=== PATIENT | female | born 1985 | race Caucasian/White ===

== ENCOUNTER 2017-01-29 12:10 | Emergency (ER) | payer SELFPAY ==
[~2017-01-29] VITALS: Ht 170.2 cm; Wt 122.5 kg
[~2017-01-29 12:10] MED LIST: BUTA1CAP45 PO; CEPH-507 PO; ONDA4TAB8 PO; ORPH100T PO; OXYC-197 PO; PRD10T PO; PROM50SU10 RC; SULF1TAB35 PO; VERA120C2 PO
--- OUTSIDE RECORDS SUMMARY | 2017-01-29 12:17 | XMS REPORT ---
Author Author HUMZA APPIAH eClinicalWorks Address Unknown Phone Unavailable Care Team Providers Care Swedish Masseuse Name Role Phone HUMZA APPIAH CP Unavailable Allergies, Adverse Reactions, Alerts Substance Reaction Event Type N.K.D.A. Info Not Available Non Drug Allergy Problems Problem Type Condition Code Onset Dates Condition Status Problem Essential hypertension I10 Active Assessment Essential hypertension I10 Active Problem Non morbid obesity due to excess calories E66.09 Active Assessment Non morbid obesity due to excess calories E66.09 Active Medications Medication Code System Code Instructions Start Date End Date Status Dosage Verapamil HCl CR [facility] [place] 2] [address]-32 120 MG Orally Once a day May 18, 2015 1 tablet Flonase [facility] [place]NOTE 2] [address]-48 50 MCG/ACT Nasally Once a day May 04, 2015 1 spray in each nostril Procedures Procedure Coding System Code Date Office Visit, Est Pt., Level 3 CPT-4 60763 May 18, 2015 Vital Signs Date/Time: May 18, 2015 Temperature 97.8 F Weight 238.6 lbs Height 67 in BMI 37.37 Index Blood Pressure Diastolic 100; repeated 146 mmHg Blood Pressure Systolic 146 mmHg Cardiac Monitoring Heart Rate 72 bpm Results No Known Results Summary Purpose eClinicalWorks Submission
--- OUTSIDE RECORDS SUMMARY | 2017-01-29 12:17 | XMS REPORT ---
Author Author AYLEEN TINOCO Organization eClinicalWorks Address Unknown Phone Unavailable Care Team Providers Care Compatibility Test Engineer Name Role Phone AYLEEN TINOCO Unavailable Allergies No Known Allergies Problems Problem Type Condition Code Onset Dates Condition Status Problem Weight loss counseling, encounter for Z71.3 Active Problem Non morbid obesity due to excess calories E66.09 Active Problem Migraines G43.909 Active Problem Essential hypertension I10 Active Medications No Known Medications Results No Known Results Summary Purpose eClinicalWorks Submission
--- OUTSIDE RECORDS SUMMARY | 2017-01-29 12:17 | XMS REPORT ---
Author Author HUMZA APPIAH eClinicalWorks Address Unknown Phone Unavailable Care Team Providers Care Palm And Back Forger Name Role Phone HUMZA APPIAH CP Unavailable Allergies, Adverse Reactions, Alerts Substance Reaction Event Type N.K.D.A. Info Not Available Non Drug Allergy Problems Problem Type Condition Code Onset Dates Condition Status Problem Non morbid obesity due to excess calories E66.09 Active Problem Essential hypertension I10 Active Problem Weight loss counseling, encounter for Z71.3 Active Assessment Weight loss counseling, encounter for Z71.3 Active Assessment Essential hypertension I10 Active Assessment Non morbid obesity due to excess calories E66.09 Active Medications Medication Code System Code Instructions Start Date End Date Status Dosage Metformin HCl [facility] [address]-72 500 MG Orally Twice a day May 30, 2015 1 tablet with meals Flonase [facility] [address]-36 50 MCG/ACT Nasally Once a day May 04, 2015 1 spray in each nostril Topamax [facility] [address]-27 50 MG Orally Twice a day May 30, 2015 1 tablet Verapamil HCl CR [facility] [address]-21 120 MG Orally Once a day May 18, 2015 1 tablet Procedures Procedure Coding System Code Date COMPREHEN METABOLIC PANEL CPT-4 28297 May 30, 2015 LIPID PANEL CPT-4 78354 May 30, 2015 COMPLETE CBC W/AUTO DIFF WBC CPT-4 80094 May 30, 2015 ASSAY OF INSULIN CPT-4 55492 May 30, 2015 ASSAY THYROID STIM HORMONE CPT-4 26879 May 30, 2015 VENIPUNCT, ROUTINE* CPT-4 26082 May 30, 2015 Office Visit, Est Pt., Level 3 CPT-4 32152 May 30, 2015 Vital Signs Date/Time: May 30, 2015 Temperature 98.7 F Weight 240.8 lbs Height 67 in BMI 37.71 Index Blood Pressure Diastolic 90 mmHg Blood Pressure Systolic 138 mmHg Cardiac Monitoring Heart Rate 92 bpm Results Name Result Date Reference Range Unit Abnormality Flag INSULIN LEVEL ----Insulin 18.8 [id number] 2.6-24.9 uIU/mL CBC ----Basos 1 83518833 % ----MCV 82 63551513 79-97 fL ----Hematocrit 41.8 61958543 34.0-46.6 % ----Eos 2 39950077 % ----MCHC 32.5 59723730 31.5-35.7 g/dL ----Monocytes 9 94474714 % ----MCH 26.6 67219405 26.6-33.0 pg ----Lymphs 36 11097386 % ----Eos (Absolute) 0.2 74751556 0.0-0.4 x10E3/uL ----WBC 8.1 17935556 3.4-10.8 x10E3/uL ----Monocytes(Absolute) 0.7 85079679 0.1-0.9 x10E3/uL ----Lymphs (Absolute) 2.9 19533869 0.7-3.1 x10E3/uL ----Hemoglobin 13.6 82987854 11.1-15.9 g/dL ----Neutrophils (Absolute) 4.3 94056458 1.4-7.0 x10E3/uL ----RBC 5.11 60506625 3.77-5.28 x10E6/uL ----Immature Grans (Abs) 0.0 63318887 0.0-0.1 x10E3/uL ----Immature Granulocytes 0 78612497 % ----Neutrophils 52 25353796 % ----Baso (Absolute) 0.0 25586393 0.0-0.2 x10E3/uL ----RDW 14.9 58063902 12.3-15.4 % ----Platelets 350 85866397 150-379 x10E3/uL ROUTINE VENIPUNCTURE TSH ----TSH 2.380 [id number] 0.450-4.500 uIU/mL LIPID PANEL ----LDL Cholesterol Calc 142 62199073 0-99 mg/dL H ----VLDL Cholesterol Pool 24 34843758 5-40 mg/dL ----HDL Cholesterol 62 22511878 >39 mg/dL ----Triglycerides 119 66383085 0-149 mg/dL ----Cholesterol, Total 228 90652184 100-199 mg/dL H CMP ----Creatinine, Serum 0.74 20150530 0.57-1.00 mg/dL ----BUN 13 20150530 6-20 mg/dL ----eGFR If Africn Am 125 59038604 >59 mL/min/1.73 ----eGFR If NonAfricn Am 108 92745178 >59 mL/min/1.73 ----Sodium, Serum 137 90675292 134-144 mmol/L ----BUN/Creatinine Ratio 18 20150530 8-20 ----Chloride, Serum 100 07534765 97-108 mmol/L ----Potassium, Serum 4.4 20150530 3.5-5.2 mmol/L ----Carbon Dioxide, Total 26 20150530 18-29 mmol/L ----Protein, Total, Serum 7.4 12473985 6.0-8.5 g/dL ----Calcium, Serum 9.5 02876713 8.7-10.2 mg/dL ----Globulin, Total 3.1 45907685 1.5-4.5 g/dL ----Albumin, Serum 4.3 66581224 3.5-5.5 g/dL ----Bilirubin, Total <0.2 20150530 0.0-1.2 mg/dL ----Glucose, Serum 90 51859652 65-99 mg/dL ----A/G Ratio 1.4 20150530 1.1-2.5 ----ALT (SGPT) 20 20150530 0-32 IU/L ----Alkaline Phosphatase, S 80 34886546 39-117 IU/L ----AST (SGOT) 16 [id number] 0-40 IU/L Summary Purpose eClinicalWorks Submission
--- OUTSIDE RECORDS SUMMARY | 2017-01-29 12:17 | XMS REPORT ---
Author Author KORI KHOURY Organization eClinicalWorks Address Unknown Phone Unavailable Care Team Providers Care Head Librarian Name Role Phone KORI KHOURY CP Unavailable Allergies, Adverse Reactions, Alerts Substance Reaction Event Type N.K.D.A. Info Not Available Non Drug Allergy Problems Problem Type Condition Code Onset Dates Condition Status Problem Non morbid obesity due to excess calories E66.09 Active Problem Essential hypertension I10 Active Problem Weight loss counseling, encounter for Z71.3 Active Assessment Sore throat J02.9 Active Medications Medication Code System Code Instructions Start Date End Date Status Dosage Topamax [facility] [address]-93 50 MG Orally Twice a day May 30, 2015 1 tablet Metformin HCl [facility] [address]-28 500 MG Orally Twice a day May 30, 2015 1 tablet with meals Flonase [facility] [address]-22 50 MCG/ACT Nasally Once a day May 04, 2015 1 spray in each nostril Verapamil HCl CR [facility] [address]-36 120 MG Orally Once a day May 18, 2015 1 tablet Procedures Procedure Coding System Code Date Office Visit, Est Pt., Level 3 CPT-4 71874 Jul 06, 2015 CULTURE, BACTERIA, OTHER CPT-4 67937 Jul 06, 2015 STREP A ASSAY W/OPTIC CPT-4 96322 Jul 06, 2015 Vital Signs Date/Time: Jul 06, 2015 Temperature 98.9 F Weight 236.9 lbs Height 67 in BMI 37.10 Index Blood Pressure Diastolic 98 mmHg Blood Pressure Systolic 138 mmHg Cardiac Monitoring Heart Rate 88 bpm Results Name Result Date Reference Range Unit Abnormality Flag STREP A (IN HOUSE) ----STREP A negative [id number] ----Control + [id number] ----Lot # [id number] ----Exp date 04/21/[id number] Summary Purpose eClinicalWorks Submission
--- OUTSIDE RECORDS SUMMARY | 2017-01-29 12:17 | XMS REPORT ---
Author Author MARY LEDEZMA [facility] eClinicalWorks Address Unknown Phone Unavailable Care Team Providers Care Filter Tip Catcher Name Role Phone MARY ELDEZMA CP Unavailable Allergies, Adverse Reactions, Alerts Substance Reaction Event Type N.K.D.A. Info Not Available Non Drug Allergy Problems Problem Type Condition Code Onset Dates Condition Status Problem Weight loss counseling, encounter for Z71.3 Active Problem Non morbid obesity due to excess calories E66.09 Active Problem Migraines G43.909 Active Problem Essential hypertension I10 Active Assessment Bronchitis J40 Active Medications Medication Code System Code Instructions Start Date End Date Status Dosage Imitrex [facility] [address]-54 100 MG Orally Once a day August 22, 2015 1 tablet as needed Flonase [facility] [address]-91 50 MCG/ACT Nasally Once a day May 04, 2015 1 spray in each nostril Doxycycline Hyclate [facility] [address]-11 100 MG Orally every 12 hrs Mar 14, 2016 Mar 19, 2016 1 capsule Verapamil HCl CR [facility] [address]-77 240 MG Orally Once a day August 30, 2015 1 capsule Promethazine-Codeine [facility] [address]-54 6.25-10 MG/5ML Orally every 6 hrs Mar 14, 2016 5 ml as needed Procedures Procedure Coding System Code Date Office Visit, Est Pt., Level 3 CPT-4 13433 Mar 14, 2016 Vital Signs Date/Time: Mar 14, 2016 Cardiac Monitoring Heart Rate 100 bpm Weight 247.5 lbs Height 67 in BMI 38.76 Index Blood Pressure Diastolic 122 mmHg Blood Pressure Systolic 159 mmHg Results No Known Results Summary Purpose eClinicalWorks Submission
--- OUTSIDE RECORDS SUMMARY | 2017-01-29 12:17 | XMS REPORT ---
Author Author HUMZA APPIAH Organization eClinicalWorks Address Unknown Phone Unavailable Care Team Providers Care Epitaxial Reactor Operator Name Role Phone HUMZA APPIAH CP Unavailable Allergies No Known Allergies Problems Problem Type Condition Code Onset Dates Condition Status Problem Essential hypertension I10 Active Problem Non morbid obesity due to excess calories E66.09 Active Medications No Known Medications Results No Known Results Summary Purpose eClinicalWorks Submission
--- OUTSIDE RECORDS SUMMARY | 2017-01-29 12:17 | XMS REPORT ---
Author Author HUMZA APPIAH Organization eClinicalWorks Address Unknown Phone Unavailable Care Team Providers Care Hand Rug Cleaner Name Role Phone HUMZA APPIAH CP Unavailable Allergies, Adverse Reactions, Alerts Substance Reaction Event Type N.K.D.A. Info Not Available Non Drug Allergy Problems Problem Type Condition Code Onset Dates Condition Status Problem Essential hypertension I10 Active Assessment Bronchitis J40 Active Problem Non morbid obesity due to excess calories E66.09 Active Assessment Cough R05 Active Medications Medication Code System Code Instructions Start Date End Date Status Dosage Flonase [facility] [address]-04 50 MCG/ACT Nasally Once a day May 04, 2015 1 spray in each nostril Verapamil HCl CR [facility] [address]-29 120 MG Orally Once a day May 18, 2015 1 tablet Tessalon Perles [facility] [address]-90 100 MG Orally Three times a day May 25, 2015 Jun 04, 2015 1 capsule as needed Azithromycin [facility] [address]-36 250 MG Orally Once a day May 25, 2015 May 30, 2015 2 tablets on the first day, then 1 tablet daily for 4 days Procedures Procedure Coding System Code Date Office Visit, Est Pt., Level 3 CPT-4 26377 May 25, 2015 Vital Signs Date/Time: May 25, 2015 Temperature 96.6 F Weight 238.4 lbs Height 67 in BMI 37.33 Index Blood Pressure Diastolic 82 mmHg Blood Pressure Systolic 120 mmHg Cardiac Monitoring Heart Rate 78 bpm Results No Known Results Summary Purpose eClinicalWorks Submission
--- OUTSIDE RECORDS SUMMARY | 2017-01-29 12:17 | XMS REPORT ---
Author Author REILLY CHRISTINE [facility] eClinicalWorks Address Unknown Phone Unavailable Care Team Providers Care Puppy Walker Name Role Phone REILLY CHRISTINE CP Unavailable Allergies No Known Allergies Problems Problem Type Condition Code Onset Dates Condition Status Problem Headache 784.0 Active Problem Rash and other nonspecific skin eruption 782.1 Active Problem Unspecified hypothyroidism 244.9 Active Problem Routine general medical examination at health care facility V70.0 Active Problem Cough 786.2 Active Problem Essential hypertension, benign 401.1 Active Problem Urinary tract infection, site not specified 599.0 Active Problem Contact or exposure to other communicable diseases V01.89 Active Problem Acute pharyngitis 462 Active Problem Acute upper respiratory infections of unspecified site 465.9 Active Problem 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
--- OUTSIDE RECORDS SUMMARY | 2017-01-29 12:18 | XMS REPORT ---
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 Active Problem Endometriosis, site unspecified 617.9 Active Problem Unspecified symptom associated with female genital organs 625.9 Active Problem Unspecified otitis media 382.9 Active Problem Dyspareunia 625.0 Active Problem General counseling for prescription of oral contraceptives V25.01 Active Problem Screening examination for venereal disease V74.5 Active Medications Medication Code System Code Instructions Start Date End Date Status Dosage Promethazine-Codeine [facility] [place] [address]-53 6.25-10 MG/5ML Orally every 6 hrs Apr 24, 2015 Apr 29, 2015 5 ml as needed verapamil NDC 0 120 mg Apr 06, 2014 1 capsule by Oral route 1 time per day PredniSONE [facility] [place] [address]-67 20 MG Orally Once a day Apr 24, 2015 Apr 29, 2015 1 tablet with food or milk Procedures Procedure Coding System Code Date Office Visit, Est Pt., Level 3 CPT-4 06158 Apr 24, 2015 Vital Signs Date/Time: Apr 24, 2015 Temperature 98.7 F Weight 237.0 lbs Height 67 in BMI 37.12 Index Blood Pressure Diastolic 88 mmHg Blood Pressure Systolic 136 mmHg Cardiac Monitoring Heart Rate 78 bpm Results No Known Results Summary Purpose eClinicalWorks Submission
--- OUTSIDE RECORDS SUMMARY | 2017-01-29 12:18 | XMS REPORT ---
Author Author HUMZA APPIAH Organization eClinicalWorks Address Unknown Phone Unavailable Care Team Providers Care Flying Squad Salesperson Name Role Phone HUMZA APPIAH CP Unavailable Allergies No Known Allergies Problems Problem Type Condition Code Onset Dates Condition Status Problem Non morbid obesity due to excess calories E66.09 Active Problem Essential hypertension I10 Active Problem Weight loss counseling, encounter for Z71.3 Active Medications No Known Medications Results No Known Results Summary Purpose eClinicalWorks Submission
--- OUTSIDE RECORDS SUMMARY | 2017-01-29 12:18 | XMS REPORT ---
Author Author SUHAIL DANIELS [facility] eClinicalWorks Address Unknown Phone Unavailable Care Team Providers Care Insurance Compliance Analyst Name Role Phone SUHAIL DANIELS CP Unavailable Allergies No Known Allergies Problems [...]
--- OUTSIDE RECORDS SUMMARY | 2017-01-29 12:18 | XMS REPORT ---
Author Author REILLY CHRISTINE [facility] eClinicalWorks Address Unknown Phone Unavailable Care Team Providers Care Property Field Adjuster Name Role Phone REILLY CHRISTINE CP Unavailable [...] Instructions Start Date End Date Status Dosage verapamil NDC 0 120 mg Apr 06, 2014 1 capsule by Oral route 1 time per day Flonase [facility] [place] [address]-22 50 MCG/ACT Nasally Once a day May 04, 2015 1 spray in each nostril Augmentin [facility] [place] [address]-24 875-125 MG Orally every 12 hrs May 04, 2015 May 14, 2015 1 tablet Promethazine-Codeine [facility] [place] [address]-00 6.25-10 MG/5ML Orally every 6 hrs Apr 24, 2015 Apr 29, 2015 5 ml as needed Procedures Procedure Coding System Code Date Office Visit, Est Pt., Level 3 CPT-4 31100 May 04, 2015 MEASURE BLOOD OXYGEN LEVEL CPT-4 53057 May 04, 2015 Vital Signs Date/Time: May 04, 2015 Temperature 97.2 F Weight 240.2 lbs Height 67 in Oximetry 99 % Blood Pressure Diastolic 114 mmHg Blood Pressure Systolic 182 mmHg Cardiac Monitoring Heart Rate 78 bpm BMI 37.62 Index Results No Known Results Summary Purpose eClinicalWorks Submission
--- OUTSIDE RECORDS SUMMARY | 2017-01-29 12:18 | XMS REPORT ---
Author Author DAWN ROTHMAN eClinicalWorks Address Unknown Phone Unavailable Care Team Providers Care Wedding Cake Designer Name Role Phone DAWN ROTHMAN CP Unavailable Allergies No Known Allergies Problems Problem Type Condition Code Onset Dates Condition Status Problem Weight loss counseling, encounter for Z71.3 Active Problem Non morbid obesity due to excess calories E66.09 Active Problem Migraines G43.909 Active Assessment Atyp squam cell of undet signfc cyto smr crvx (ASC-US) R87.610 Active Problem Essential hypertension I10 Active Assessment Cervical high risk human papillomavirus (HPV) DNA test positive R87.810 Active Medications No Known Medications Procedures Procedure Coding System Code Date ENDOCERV CURETTAGE W/SCOPE CPT-4 59547 December 14, 2015 URINE TEST CPT-4 39090 December 14, 2015 Vital Signs Date/Time: December 14, 2015 Cardiac Monitoring Heart Rate 86 bpm Weight 246.0 lbs Height 67 in Blood Pressure Diastolic 88 mmHg Blood Pressure Systolic 146 mmHg Results No Known Results Summary Purpose eClinicalWorks Submission
--- OUTSIDE RECORDS SUMMARY | 2017-01-29 12:18 | XMS REPORT ---
Author Author AYLEEN TINOCO [facility] eClinicalWorks Address Unknown Phone Unavailable Care Team Providers Care Mining Speculator Name Role Phone AYLEEN TINOCO Unavailable Allergies No Known Allergies Problems Problem Type Condition Code Onset Dates Condition Status Problem Weight loss counseling, encounter for Z71.3 Active Problem Non morbid obesity due to excess calories E66.09 Active Problem Migraines G43.909 Active Problem Essential hypertension I10 Active Medications Medication Code System Code Instructions Start Date End Date Status Dosage Imitrex [facility] [address]-09 100 MG Orally Once a day August 22, 2015 1 tablet as needed Results No Known Results Summary Purpose eClinicalWorks Submission
[2017-01-29] MEDS ORDERED: meTOprolol TARTRATE 25 MG (LOPRESSOR) TABLET PO ONE (12:30)
[2017-01-29] MEDS ORDERED: ALPRAZolam 0.5 MG (XANAX) TAB PO SCH (12:30)
--- NOTE | 2017-01-29 12:37 | ED Chest Pain ---
General Chief Complaint: Chest Pain Stated Complaint: CHEST PAINS Nursing Triage Note: c/o chest pain. Onset yesterday. Pt has been out of her BP meds the last 4-5 days. Nursing Sepsis Screen: No Definite Risk Source: patient Exam Limitations: no limitations History of Present Illness Time seen by provider: 12:37 Initial Comments Chest pain since yesterday described as tightness. Also has dyspnea and anxiety. Ran out of benazepril 4-5 days ago. Timing/Duration: 24 hours Severity/Quality: moderate Location: central Radiation: no radiation Activities at Onset: none Prior CP/Workup: no prior chest pain, angina Allergies and Home Medications Allergies Coded Allergies: hydrocodone (Unverified Allergy, Mild, PT STATES MAKES HER ITCHY, 12/16/06) metoclopramide (Unverified Adverse Reaction, Mild, PT STATES MAKES HER DIZZY AND LIGHTHEADED, 12/16/06) Home Medications Benazepril HCl 10 Mg Tablet, 10 MG PO DAILY, #10 Prescribed by: GERMAIN GARCIA on 01/29/17 1330 Butalb/Acetaminophen/Caffeine 1 Each Capsule, 1-2 EACH PO Q6H PRN for HEADACHE, #10 Prescribed by: CHUCK PARKER on 08/23/15821 Ondansetron 4 Mg Tab.rapdis, 4 MG PO Q4H, #10 Prescribed by: CHUCK PARKER on 08/23/15821 Orphenadrine Citrate 100 Mg Tablet.er, 100 MG PO BID, #14 FOR MUSCLE SPASMS Prescribed by: CHUCK PARKER on 08/23/15821 Prednisone 10 Mg Tab, 40 MG PO DAILY, #12 Prescribed by: CHUCK PARKER on 05/24/162117 Promethazine HCl 50 Mg Supp.rect, 50 MG RC Q4H, #10 Prescribed by: CHUCK PARKER on 08/23/15821 Sulfamethoxazole/Trimethoprim 1 Each Tablet, 1 EACH PO BID, #20 Prescribed by: CHUCK PARKER on 05/24/162117 Verapamil HCl 120 Mg Cap24h.pel, Unknown Dose PO DAILY, (Reported) Review of Systems Constitutional: see HPI EENTM: No Symptoms Reported Respiratory: See HPI Cardiovascular: See HPI, Chest Pain Gastrointestinal: See HPI Genitourinary: No Symptoms Reported Musculoskeletal: no symptoms reported Skin: no symptoms reported Psychiatric/Neurological: No Symptoms Reported Endocrine: No Symptoms Reported Past Zquwwpy-Chkmyx-Ojdqon Hx Patient Social History Alcohol Use: Occasionally Uses Recreational Drug Use: No Smoking Status: Never a Smoker Recent Foreign Travel: No Contact w/Someone Who Travel: No Recent Infectious Disease Expo: No Recent Hopitalizations: No Immunizations Up To Date Tetanus Booster (TDap): Unknown Seasonal Allergies Seasonal Allergies: No Surgeries Surgeries: Abdominal Cardiovascular Cardiac Disorders: Hypertension Neurological Neurological Disorders: Headaches /Migraines Reproductive System : No Hx Reproductive Disorders: Yes Female Reproductive Disorders: Menstrual Problems, Endometriosis, Ovarian Cyst Endocrine Endocrine Disorders: Hypothyroidsim Blood Transfusions Adverse Reaction to a Blood Tr: No Physical Exam Vital Signs Vital Sign - Last 12Hours 01/29/17 01/29/17 12:23 12:26 Temp 98.0 Pulse 90 Resp 20 B/P (MAP) 184/116 Pulse Ox 98 O2 Delivery Room Air Capillary Refill : Less Than 3 Seconds General Appearance: No Apparent Distress, WD/WN, Anxious, Obese HEENT: PERRL/EOMI, TMs Normal Neck: Full Range of Motion, Normal Inspection Respiratory: Normal Breath Sounds, No Accessory Muscle Use, No Respiratory Distress Cardiovascular: Regular Rate, Rhythm, Normal Peripheral Pulses Gastrointestinal: Non Tender, Soft Extremity: Normal Capillary Refill, Normal Inspection Neurologic/Psychiatric: Alert, Oriented x3, No Motor/Sensory Deficits Skin: Normal Color, Warm/Dry Progress/Results/Core Measures Results/Orders Lab Results Laboratory Tests Test 01/29/17 13:00 01/29/17 13:20 Range/Units White Blood Count 8.5 4.3-11.0 10^3/uL Red Blood Count 4.90 4.35-5.85 10^6/uL Hemoglobin 12.8 11.5-16.0 G/DL Hematocrit 40 35-52 % Mean Corpuscular Volume 82 80-99 FL Mean Corpuscular Hemoglobin 26 25-34 PG Mean Corpuscular Hemoglobin Concent 32 32-36 G/DL Red Cell Distribution Width 14.6 H 10.0-14.5 % Platelet Count 380 130-400 10^3/uL Mean Platelet Volume 9.2 7.4-10.4 FL Neutrophils (%) (Auto) 67 42-75 % Lymphocytes (%) (Auto) 23 12-44 % Monocytes (%) (Auto) 8 0-12 % Eosinophils (%) (Auto) 1 0-10 % Basophils (%) (Auto) 0 0-10 % Neutrophils # (Auto) 5.7 1.8-7.8 X 10^3 Lymphocytes # (Auto) 1.9 1.0-4.0 X 10^3 Monocytes # (Auto) 0.7 0.0-1.0 X 10^3 Eosinophils # (Auto) 0.1 0.0-0.3 10^3/uL Basophils # (Auto) 0.0 0.0-0.1 10^3/uL D-Dimer < 0.27 0.00-0.49 UG/ML Sodium Level 140 135-145 MMOL/L Potassium Level 3.9 3.6-5.0 MMOL/L Chloride Level 106 98-107 MMOL/L Carbon Dioxide Level 20 L 21-32 MMOL/L Anion Gap 14 5-14 MMOL/L Blood Urea Nitrogen 12 7-18 MG/DL Creatinine 0.80 0.60-1.30 MG/DL Estimat Glomerular Filtration Rate > 60 BUN/Creatinine Ratio 15 Glucose Level 95 70-105 MG/DL Calcium Level 9.2 8.5-10.1 MG/DL Total Bilirubin 0.4 0.1-1.0 MG/DL Aspartate Amino Transf (AST/SGOT) 13 5-34 U/L Alanine Aminotransferase (ALT/SGPT) 23 0-55 U/L Alkaline Phosphatase 63 40-136 U/L Troponin I < 0.30 <0.30 NG/ML Total Protein 7.7 6.4-8.2 GM/DL Albumin 4.0 3.2-4.5 GM/DL Urine Color NITA H Urine Clarity SLIGHTLY CLOUDY Urine pH 6 5-9 Urine Specific [place] 1.020 1.016-1.022 Urine Protein 1+ H NEGATIVE Urine Glucose (UA) NEGATIVE NEGATIVE Urine Ketones NEGATIVE NEGATIVE Urine Nitrite NEGATIVE NEGATIVE Urine Bilirubin NEGATIVE NEGATIVE Urine Urobilinogen NORMAL NORMAL MG/DL Urine Leukocyte Esterase 1+ H NEGATIVE Urine RBC (Auto) 4+ H NEGATIVE Urine RBC 0-2 /HPF Urine WBC RARE /HPF Urine Squamous Epithelial Cells 10-25 H /HPF Urine Crystals NONE /LPF Urine Bacteria NEGATIVE /HPF Urine Casts NONE /LPF Urine Mucus SMALL H /LPF Urine Culture Indicated NO My Orders Orders - GERMAIN GARCIA PHOTOGRAPH DEVELOPER Cbc With Automated Diff (01/29/17 12:21) Comprehensive Metabolic Panel (01/29/17 12:21) Ua Culture If Indicated (01/29/17 12:21) Urine Bedside (01/29/17 12:21) Saline Lock/Iv-Start (01/29/17 12:21) Ekg Tracing (01/29/17 12:21) Troponin I (01/29/17 12:21) Fibrin Degradation Products (01/29/17 12:21) Chest Pa/Lat (2 View) (01/29/17 12:21) Metoprolol Tartrate (Ir) Tab (Lopressor (01/29/17 12:30) Alprazolam Tablet (Xanax Tablet) (01/29/17 12:30) Medications Given in ED Current Medications Medications Dose Ordered Sig/Demetrice Route Start Time Stop Time Status Last Admin Dose Admin Metoprolol Tartrate 25 mg ONCE ONCE PO 01/29/17 12:30 01/29/17 12:31 DC 01/29/17 13:21 25 MG Vital Signs/I&O Vital Sign - Last 12Hours 01/29/17 01/29/17 12:23 12:26 Temp 98.0 Pulse 90 Resp 20 B/P (MAP) 184/116 Pulse Ox 98 O2 Delivery Room Air Blood Pressure Mean: 138 Diagnostic Imaging Diagonstic Imaging: Xray Comments NAME: LEXI RUIZ [facility] REC#: [id number] PT STATUS: REG ER : 1985 PHYSICIAN: GERMAIN GARCIA APRN ADMIT DATE: 01/29/17/ER Draft Date of Exam:01/29/17 CHEST PA/LAT (2 VIEW) INDICATION: Chest pain. EXAMINATION: PA and lateral views of the chest. FINDINGS: The heart size and vascularity are normal. Lungs are clear. There is no effusion. There is no acute bony abnormality. IMPRESSION: No acute abnormality is seen. Dictated on workstation # [id number] Dict: 01/29/17 1316 Trans: 01/29/17 1319 [facility] [id number] Interpreted by: KIM DUENAS MD Electronically signed by: Departure Impression Impression: Primary Impression: Chest pain Additional Impression: Hypertension Disposition: 01 HOME, SELF-CARE Condition: Stable Departure-Patient Inst. Decision time for Depature: 13:28 Referrals: [facility] (PCP/Family) Primary Care Physician Patient Instructions: Chest Pain (DC) Add. Discharge Instructions: 1. Return to ER for any concerns 2. All discharge instructions reviewed with patient and/or family. Voiced understanding. Scripts Benazepril HCl (Benazepril HCl) 10 Mg Tablet 10 MG PO DAILY, #10 TAB Prov: GERMAIN GARCIA APRN 01/29/17 GERMAIN GARCIA APRN Jan 29, 2017 12:37
[2017-01-29 13:12] LABS: BASOPHILS % (AUTO) 0 % (0-10); EOSINOPHILS # (AUTO) 0.1 10^3/uL (0.0-0.3); EOSINOPHILS % (AUTO) 1 % (0-10); LYMPHOCYTES # (AUTO) 1.9 X 10^3 (1.0-4.0); LYMPHOCYTES % (AUTO) 23 % (12-44); MEAN CORPUSCULAR HEMOGLOBIN 26 PG (25-34); MEAN CORPUSCULAR HGB CONC 32 G/DL (32-36); MEAN CORPUSCULAR VOLUME 82 FL (80-99); MEAN PLATELET VOLUME 9.2 FL (7.4-10.4); MONOCYTES # (AUTO) 0.7 X 10^3 (0.0-1.0); MONOCYTES % (AUTO) 8 % (0-12); NEUTROPHILS # (AUTO) 5.7 X 10^3 (1.8-7.8); NEUTROPHILS % (AUTO) 67 % (42-75); PLATELET COUNT 380 10^3/uL (130-400); RED CELL DISTRIBUTION WIDTH 14.6 % (10.0-14.5); WHITE BLOOD COUNT 8.5 10^3/uL (4.3-11.0)
--- NOTE | 2017-01-29 13:19 | Diagnostic Imaging Report ---
INDICATION: Chest pain. EXAMINATION: PA and lateral views of the chest. FINDINGS: The heart size and vascularity are normal. Lungs are clear. There is no effusion. There is no acute bony abnormality. IMPRESSION: No acute abnormality is seen. Dictated by: Dictated on workstation # [id number]
[2017-01-29 13:26] LABS: ALANINE AMINOTRANSFERASE 23 U/L (0-55); ANION GAP 14 MMOL/L (5-14); ASPARTATE AMINO TRANSFERASE 13 U/L (5-34); BILIRUBIN,TOTAL 0.4 MG/DL (0.1-1.0); BLOOD UREA NITROGEN 12 MG/DL (7-18); BUN/CREATININE RATIO 15; CALCIUM 9.2 MG/DL (8.5-10.1); CARBON DIOXIDE 20 MMOL/L (21-32); CHLORIDE 106 MMOL/L (98-107); GFR ESTIMATED > 60; GLUCOSE 95 MG/DL (70-105); POTASSIUM 3.9 MMOL/L (3.6-5.0); SODIUM 140 MMOL/L (135-145); TOTAL PROTEIN 7.7 GM/DL (6.4-8.2)
[2017-01-29] MEDS ORDERED: BENA10TA2 PO (13:30)
[2017-01-29 13:31] LABS: TROPONIN I < 0.30 NG/ML (<0.30)
[2017-01-29 13:35] LABS: BILIRUBIN,URINE NEGATIVE (NEGATIVE); KETONES,URINE NEGATIVE (NEGATIVE); LEUKOCYTE ESTERASE ,URINE 1+ (NEGATIVE); NITRITE,URINE NEGATIVE (NEGATIVE); PH,URINE 6 (5-9); PROTEIN,URINE 1+ (NEGATIVE); UROBILINOGEN,URINE NORMAL (NORMAL)
[2017-01-29 13:46] LABS: WBC,URINE RARE /HPF
[2017-01-29 15:11] VITALS: BP 142/92
== END 2017-01-29 15:11 | disposition home or self-care (01) ==
LOC: EDUNIT# 12:10 → ER 12:13
DX: R07.89 Other chest pain (principal); I10 Essential (primary) hypertension; F41.9 Anxiety disorder, unspecified; G43.909 Migraine, unspecified, not intractable, without status migrainosus; E03.9 Hypothyroidism, unspecified; Z87.448 Personal history of other diseases of urinary system
CPT/HCPCS: 36415; 71020; 80053; 81000; 84484; 84703; 85025; 85379; 93005

== ENCOUNTER 2017-10-08 09:39 | Emergency (ER) | payer SELFPAY ==
[~2017-10-08] VITALS: Ht 167.6 cm; Wt 113.4 kg
[~2017-10-08 09:39] MED LIST changes: +BENA10TA2 PO
--- OUTSIDE RECORDS SUMMARY | 2017-10-08 09:48 | XMS REPORT ---
Author Author LIGIA RICHARDSON Organization [facility] Address [address] [place] [address] Care Team Providers Care Spa Experience Coordinator Name Role Phone LIGIA RICHARDSON Unavailable PROBLEMS Type Condition ICD9-CM Code ZPL16-SW Code Onset Dates Condition Status SNOMED Code Problem Migraines G43.909 Active 00372232 Problem Weight loss counseling, encounter for Z71.3 Active 189778377 Problem Non morbid obesity due to excess calories E66.09 Active 355451345 Problem Essential hypertension I10 Active [id number] ALLERGIES No Known Allergies ENCOUNTERS Encounter Location Date Diagnosis [place] [id number] [place] [address] 80937- 7809 Jul, Essential hypertension I10 [facility] [id number] [place] [address] 97115- 2464 Mar, [facility] [id number] [place] [address] 37130- 7492 Jan, Essential hypertension I10 and Non morbid obesity due to excess calories E66.09 [facility] [id number] [place] [address] 37513- 6288 Apr, [facility] [id number] [place] [address] 62106- 1629 Mar, Bronchitis J40 [facility] [id number] [place] [address] 44574- 5706 Jan, [facility] [id number] [place] [address] 38939- 2735 Dec, [facility] [id number] [place] [address] 29259- 2993 Dec, Essential hypertension I10 ; Non morbid obesity due to excess calories E66.09 and Weight loss counseling, encounter for Z71.3 [place] [id number] [place] [address] 53501- 7030 14 Dec, 2015 Cervical high risk human papillomavirus (HPV) DNA test positive R87.810 and Atyp squam cell of undet signfc cyto smr crvx (ASC-US) R87.610 [place] [id number] [place] [address] 45018- 8390 September, Encounter for Papanicolaou smear for cervical cancer screening Z12.4 and Screening for STD sexually transmitted disease Z11.3 [place] [id number] [place] [address] 81600- 8351 Aug, [place] [address] 00494- 2589 Jul, Essential hypertension I10 and Migraines G43.909 [place] [address] 17668- 7810 24 Aug, 2015 [place] [id number] [place] [address] 93380- 7807 Jul, Headache R51 [place] [id number] [place] [address] 29961- 1783 Jul, Essential hypertension I10 ; Non morbid obesity due to excess calories E66.09 ; Migraines G43.909 and Environmental allergies Z91.09 [place] [id number] [place] [address] 39182- 8003 Jul, [place] [id number] [place] [address] 28592- 3160 Jul, [place] [id number] [place] [address] 06674- 9451 04 Jul, 2015 Sore throat J02.9 [place] [id number] [place] [address] 25811- 1786 May, Essential hypertension I10 ; Non morbid obesity due to excess calories E66.09 and Weight loss counseling, encounter for Z71.3 [facility] [id number] [place] [address] 27902- 9796 May, [facility] [id number] [place] [address] 83276- 1281 May, [facility] [id number] [place] [address] 71223- 3139 May, Bronchitis J40 and Cough R05 [facility] [id number] [place] [address] 83970- 0840 17 May, 2015 Essential hypertension I10 and Non morbid obesity due to excess calories E66.09 [facility] [id number] [place] [address] 33417- 5875 May, [facility] [id number] [place] [address] 10431- 9638 May, [facility] [id number] [place] [address] 03953- 0355 May, Upper respiratory infection J06.9 [facility] [id number] [place] [address] 38891- 2149 Apr, Upper respiratory infection J06.9 [facility] [id number] [place] [address] 96772- 1464 07 Nov, 2014 Urinary tract infection 599.0 and Dysuria 788.1 [facility] [id number] [place] [address] 03635- 2452 14 Aug, 2014 [facility] [id number] [place] [address] 93555- 2871 13 Aug, 2014 [facility] [id number] [place] [address] 17839- 4537 12 Jun, 2014 [facility] [id number] [place] [address] 67988- 1832 12 Jun, 2014 [facility] [id number] [place] [address] 01757- 0347 Jun, [facility] [place] [facility] [address] [id number] [place] [address]- 0363 Jun, [facility] [place] [facility] [address] [id number] [place] [address]- 8930 Apr, [facility] [place] [facility] [address] [id number] [place] [address]- 3567 Apr, [facility] [place] [facility] [address] [id number] [place] [address]- 3526 Apr, [facility] [place] [facility] [address] [id number] [place] [address]- 9327 Apr, [facility] [place] [facility] [address] [id number] [place] [address]- 7153 Apr, [facility] [place] [facility] [address] [id number] [place] [address]- 3629 Apr, [facility] [place] [facility] [address] [id number] [place] [address]- 4659 Apr, [facility] [place] [facility] [address] [id number] [place] [address]- 2881 Apr, [facility] [place] [facility] [address] [id number] [place] [address]- 7853 Apr, [facility] [place] [facility] [address] [id number] [place] [address]- 4161 Apr, [facility] [place] [facility] [address] [id number] [place] [address]- 5240 Apr, [facility] [place] [facility] [address] [id number] [place] [address]- 2460 Apr, [facility] [place] [facility] [address] [id number] [place] [address]- 9581 Mar, [facility] [place] [facility] [address] [id number] [place] [address]- 6753 Mar, [facility] [place] [facility] [address] [id number] [place] [address]- 1215 Jan, [facility] [place] [facility] [address] [id number] [place] [address]- 9403 Jan, [facility] [place] [facility] [address] [id number] [place] [address]- 2932 Nov, [facility] [place] [facility] [address] [id number] [place] [address]- 2201 Nov, [facility] [place] [facility] [address] [id number] [place] [address]- 9353 Oct, [facility] [place] [facility] [address] [id number] [place] [address]- 3913 Oct, [facility] [place] [facility] [address] [id number] [place] [address]- 6312 Oct, [facility] [place] [facility] [address] [id number] [place] [address]- 3543 Oct, [facility] [place] [facility] [address] [id number] [place] [address]- 4304 Oct, [facility] [place] [facility] [address] [id number] [place] [address]- 8175 Oct, [facility] [place] [facility] [address] [id number] [place] [address]- 9840 Oct, [facility] [place] [facility] [address] [id number] [place] [address]- 4380 Oct, [facility] [place] [facility] [address] [id number] [place] [address]- 6215 Oct, [facility] [place] [facility] [address] [id number] [place] [address]- 7060 Oct, [facility] [place] [facility] [address] [id number] [place] [address]- 0968 Jun, [facility] [place] [facility] [address] [id number] [place] [address]- 0045 Jun, [facility] [id number] [address]- 3693 Apr, [facility] [id number] [place] [address]- 3443 Apr, [facility] [address] [place] [address]- 1758 Mar, [facility] [id number] [place] [address]- 4140 Jan, [facility] [id number] [place] [address]- 0959 Jan, [facility] [address] [place] [address]- 8843 Jan, [facility] [address] [place] [address]- 0516 Jul, [facility] [address] [place] [address]- 5166 Jan, IMMUNIZATIONS No Known Immunizations SOCIAL HISTORY Never Assessed REASON FOR VISIT Blood Pressure, her current bp med is working well however is [facility]- AHajoseRN, at one point and time Dr. Peterson was her pcp, she was taking samples of a metabolic med that was helping PLAN OF CARE Activity Details Follow Up 6 Months Reason:HTN/MS VITAL SIGNS Height 67 in 2017-02-27 Weight 236.6 lbs 2017-02-27 Temperature 98.6 degrees Fahrenheit 2017-02-27 Heart Rate 90 bpm 2017-02-27 Respiratory Rate 20 2017-02-27 BMI 37.05 kg/m2 2017-02-27 Blood pressure systolic 140 mmHg 2017-02-27 Blood pressure diastolic 86 mmHg 2017-02-27 MEDICATIONS Medication Instructions Dosage Frequency Start Date End Date Duration Status Benazepril-Hydrochlorothiazide 20-12.5 MG Orally Once a day 1 tablet 24h Active Lisinopril-Hydrochlorothiazide 20-12.5 MG Orally Once a day 1 tablet 24h 28 Jan, 2017 Active Imitrex 100 MG Orally Once a day 1 tablet as needed 24h Jul, Active Flonase 50 MCG/ACT Nasally Once a day 1 spray in each nostril 24h May, Active RESULTS No Results PROCEDURES No Known procedures INSTRUCTIONS MEDICATIONS ADMINISTERED No Known Medications MEDICAL (GENERAL) HISTORY Type Description Date Medical History hypertension Medical History Essential hypertension, benign Medical History Unspecified hypothyroidism Medical History Migraine, unspecified, not intractable, without status migrainosus Surgical History tubal ligation Surgical History Vani whiteside 11/2014 Hospitalization History Child /surgery Hospitalization History [facility] for migraines 08/2015
--- OUTSIDE RECORDS SUMMARY | 2017-10-08 09:48 | XMS REPORT ---
Author Author LIGIA RICHARDSON Organization [facility] Address [address] [place] [address] Care Team Providers Care Branch Lending Officer Name Role Phone LIGIA RICHARDSON Unavailable PROBLEMS Type Condition ICD9-CM Code LBE53-QE Code Onset Dates Condition Status SNOMED Code Problem Migraines G43.909 Active 91790487 Problem Weight loss counseling, encounter for Z71.3 Active 806203627 Problem Non morbid obesity due to excess calories E66.09 Active 047241938 Problem Essential hypertension I10 Active 07617718 ALLERGIES No Information ENCOUNTERS Encounter Location Date Diagnosis [place] [id number] [place] [address] 93748- 4746 Jul, Essential hypertension I10 [facility] [id number] [place] [address] 83518- 8469 Mar, [facility] [id number] [place] [address] 92291- 7888 Jan, Essential hypertension I10 and Non morbid obesity due to excess calories E66.09 [facility] [id number] [place] [address] 02574- 8750 Apr, [facility] [id number] [place] [address] 55419- 5033 Mar, Bronchitis J40 [facility] [id number] [place] [address] 62242- 5141 Jan, [facility] [id number] [place] [address] 13818- 6895 Dec, [facility] [id number] [place] [address] 05540- 0190 Dec, Essential hypertension I10 ; Non morbid obesity due to excess calories E66.09 and Weight loss counseling, encounter for Z71.3 [place] [id number] [place] [address] 06429- 4923 14 Dec, 2015 Cervical high risk human papillomavirus (HPV) DNA test positive R87.810 and Atyp squam cell of undet signfc cyto smr crvx (ASC-US) R87.610 [place] [id number] [place] [address] 50704- 3499 September, Encounter for Papanicolaou smear for cervical cancer screening Z12.4 and Screening for STD sexually transmitted disease Z11.3 [place] [id number] [place] [address] 87395- 3509 Aug, [place] [address] 02553- 9500 Jul, Essential hypertension I10 and Migraines G43.[address] 33543- 5484 24 Aug, 2015 [place] [id number] [place] [address] 69620- 3042 Jul, Headache R51 [place] [id number] [place] [address] 39149- 0848 Jul, Essential hypertension I10 ; Non morbid obesity due to excess calories E66.09 ; Migraines G43.909 and Environmental allergies Z91.09 [place] [id number] [place] [address] 98421- 7615 Jul, [place] [id number] [place] [address] 75468- 2302 Jul, [address] 40838- 4425 04 Jul, 2015 Sore throat J02.9 [place] [id number] [place] [address] 71809- 0162 May, Essential hypertension I10 ; Non morbid obesity due to excess calories E66.09 and Weight loss counseling, encounter for Z71.3 [facility] [address] [place] [address] 14983- 5566 May, [facility] [id number] [place] [address] 91404- 9693 May, [facility] [id number] [place] [address] 91509- 7373 May, Bronchitis J40 and Cough R05 [facility] [id number] [place] [address] 53408- 1115 17 May, 2015 Essential hypertension I10 and Non morbid obesity due to excess calories E66.09 [facility] [id number] [place] [address] 54247- 0841 May, [facility] [id number] [place] [address] 14079- 7731 May, [facility] [id number] [place] [address] 71696- 7141 May, Upper respiratory infection J06.9 [facility] [id number] [place] [address] 21987- 5011 Apr, Upper respiratory infection J06.9 [facility] [id number] [place] [address] 03994- 9440 Nov, Urinary tract infection 599.0 and Dysuria 788.1 [facility] [id number] [place] [address] 03404- 7160 14 Aug, 2014 [facility] [id number] [place] [address] 15052- 3447 13 Aug, 2014 [facility] [id number] [place] [address] 04459- 5758 Jun, [facility] [id number] [place] [address] 04471- 3006 Jun, [facility] [id number] [place] [address] 09996- 2478 Jun, [facility] [place] [facility] [address] [id number] [place] [address]- 8048 Jun, [facility] [place] [facility] [address] [id number] [place] [address]- 2305 Apr, [facility] [place] [facility] [address] [id number] [place] [address]- 0467 Apr, [facility] [place] [facility] [address] [id number] [place] [address]- 8972 Apr, [facility] [place] [facility] [address] [id number] [place] [address]- 3674 Apr, [facility] [place] [facility] [address] [id number] [place] [address]- 2234 Apr, [facility] [place] [facility] [address] [id number] [place] [address]- 9231 Apr, [facility] [place] [facility] [address] [id number], [place] [address]- 0151 Apr, [facility] [place] [facility] [address] [id number] [place] [address]- 1686 Apr, [facility] [place] [facility] [address] [id number] [place] [address]- 6309 Apr, [facility] [place] [facility] [address] [id number], [place] [address]- 1351 Apr, [facility] [place] [facility] [address] [id number], [place] [address]- 6414 Apr, [facility] [place] [facility] [address] [id number], [place] [address]- 9185 Apr, [facility] [place] [facility] [address] [id number], [place] [address]- 3974 Mar, [facility] [place] [facility] [address] [id number], [place] [address]- 5068 Mar, [facility] [place] [facility] [address] [id number] [place] [address]- 5201 Jan, [facility] [place] [facility] [address] [id number] [place] [address]- 0235 Jan, [facility] [place] [facility] [address] [id number] [place] [address]- 4746 Nov, [facility] [place] [facility] [address] [id number] [place] [address]- 5377 Nov, [facility] [place] [facility] [address] [id number] [place] [address]- 9062 Oct, [facility] [place] [facility] [address] [id number] [place] [address]- 1585 Oct, [facility] [place] [facility] [address] [id number] [place] [address]- 6457 Oct, [facility] [place] [facility] [address] [id number] [place] [address]- 1682 Oct, [facility] [place] [facility] [address] [id number] [place] [address]- 6464 Oct, [facility] [place] [facility] [address] [id number] [place] [address]- 0194 Oct, [facility] [place] [facility] [address] [id number] [place] [address]- 7628 Oct, [facility] [place] [facility] [address] [id number] [place] [address]- 5811 Oct, [facility] [place] [facility] [address] [id number] [place] [address]- 2519 Oct, [facility] [place] [facility] [address] [id number] [place] [address]- 8046 Oct, [facility] [place] [facility] [address] [id number] [place] [address]- 1786 Jun, [facility] [place] [facility] [address] [id number] [place] [address]- 4467 Jun, [facility] [address] [id number], [place] [address]- 3713 Apr, [facility] [address], [place] [address]- 7124 Apr, [facility] [address], [place] [address]- 8573 Mar, [facility] [id number] [place] [address] 75487- 6459 Jan, [facility] [address], [place] [address]- 0824 Jan, [facility] [address] [place] [address]- 8263 Jan, [facility] [address], [place] [address]- 8573 Jul, [facility] [address], [place] [address]- 8342 Jan, IMMUNIZATIONS No Known Immunizations SOCIAL HISTORY Never Assessed REASON FOR VISIT DM ed attempt PLAN OF CARE VITAL SIGNS MEDICATIONS Unknown Medications RESULTS No Results PROCEDURES No Known procedures [...]
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
[2017-10-08] MEDS ORDERED: LISINOPRIL (10:06)
--- NOTE | 2017-10-08 11:32 | ED General ---
General Chief Complaint: Lower Extremity Stated Complaint: LEG SWELLING Nursing Triage Note: C/O L CALF SWELLING ON AND OFF FOR 2 MONTHS Nursing Sepsis Screen: No Definite Risk Source of Information: Patient Exam Limitations: No Limitations History of Present Illness Date Seen by Provider: October 08, 2017 Time Seen by Provider: 11:32 Initial Comments 32-year-old female patient presents to the emergency department with complaints of left calf swelling and claudication for proximally 2 months. Mother and grandmother have a history of DVTs. Patient denies having any previous genetic testing. Denies SOA and chest pain Location Injury Occurred: denies known injury Timing/Duration: Intermittent, Other (2 month onset) Modifying Factors: worse with Other (ambulation) Allergies and Home Medications Allergies Coded Allergies: hydrocodone (Unverified Allergy, Mild, PT STATES MAKES HER ITCHY, 12/16/06) metoclopramide (Unverified Adverse Reaction, Mild, PT STATES MAKES HER DIZZY AND LIGHTHEADED, 12/16/06) Patient Home Medication List Home Medication List Reviewed: Yes Review of Systems Constitutional: No chills, No diaphoresis, No dizziness, No fever, No malaise Respiratory: No cough, No dyspnea on exertion, No short of breath Cardiovascular: see HPI; No chest pain, No palpitations, No syncope Gastrointestinal: no symptoms reported Musculoskeletal: see HPI Skin: no symptoms reported Psychiatric/Neurological: Denies Numbness, Denies Paresthesia, Denies Tingling , Denies Weakness All Other Systems Reviewed Negative Unless Noted: Yes (Negative excepted noted.) Past Tzhzbio-Pszlci-Perdyt Hx Patient Social History Alcohol Use: Denies Use Recreational Drug Use: No Smoking Status: Never a Smoker Recent Foreign Travel: No Contact w/Someone Who Travel: No Recent Infectious Disease Expo: No Recent Hopitalizations: No Immunizations Up To Date Tetanus Booster (TDap): Unknown Seasonal Allergies Seasonal Allergies: No Past Medical History Surgeries: Yes (OVARIAN CYST REMOVAL AND PART OF ONE TUBE REMOVED: "TUMMY TUCK ") Abdominal Respiratory: No Cardiac: Yes Hypertension Neurological: Yes Headaches /Migraines Reproductive Disorders: Yes Female Reproductive Disorders: Menstrual Problems, Endometriosis, Ovarian Cyst Gastrointestinal: No Musculoskeletal: No Endocrine: Yes Hypothyroidsim Cancer: No Psychosocial: No Integumentary: No Blood Disorders: No Adverse Reaction/Blood Tranf: No Family Medical History Reviewed Nursing Family Hx Other Conditions/Hx (mother and maternal grandmother have a h/o DVT's.) Physical Exam Vital Signs Vital Signs - First Documented 10/08/17 09:55 Temp 98.5 Pulse 83 Resp 18 B/P (MAP) 116/84 (95) Pulse Ox 97 O2 Delivery Room Air Capillary Refill : Less Than 3 Seconds General Appearance: No Apparent Distress, WD/WN HEENT: PERRL/EOMI, Pharynx Normal Neck: Normal Inspection, Supple Respiratory: Lungs Clear, Normal Breath Sounds, No Accessory Muscle Use, No Respiratory Distress Cardiovascular: Regular Rate, Rhythm, No Murmur, Normal Peripheral Pulses Gastrointestinal: Normal Bowel Sounds, Non Tender, Soft Back: Normal Inspection Extremity: Normal Capillary Refill, Normal Range of Motion, Pedal Edema (left lower extremity swelling (right calf measures 48.5 cm; left calf measures 50.5 cm) with calf tenderness) Neurologic/Psychiatric: Alert, Oriented x3, No Motor/Sensory Deficits, Normal Mood/Affect Skin: Normal Color, Warm/Dry; No Ecchymosis, No Erythema Progress/Results/Core Measures Suspected Sepsis Recent Fever Within 48 Hours: No Infection Criteria Present: None New/Unexplained Altered Menta: No Sepsis Screen: No Definite Risk SIRS Temperature:98.5 Pulse: 83 Respiratory Rate: 18 Blood Pressure 116 /84 Mean: 95 Results/Orders My Orders Orders - OMID MOFFETT Us Venous Lower Ext Lt (10/08/17 11:43) Vital Signs/I&O 10/08/17 13:19 Pulse 83 Resp 18 B/P (MAP) 116/84 Pulse Ox 98 O2 Delivery Room Air Capillary Refill : Less Than 3 Seconds Blood Pressure Mean: 95 Diagnostic Imaging Diagonstic Imaging: Ultrasound Plain Films/CT/US/NM/MRI: leg Comments US VENOUS LOWER EXT LT PROCEDURE: US left lower extremity venous. TECHNIQUE: Multiple real-time grayscale images were obtained over the left lower extremity in various projections. Additional duplex Doppler and color Doppler images were also obtained. INDICATION: Left lower extremity swelling. COMPARISON: None. FINDINGS: The left common femoral vein, femoral vein, deep femoral vein, and popliteal vein are normal in appearance. These vessels show normal compressibility, color flow and doppler augmentation. The visualized deep calf veins demonstrate no distinct intraluminal thrombus. IMPRESSION: 1. No sonographic evidence of deep venous thrombosis in the left lower extremity. Dictated on workstation # [id number] Reviewed: Reviewed by Me (radiology report reviewed by me) Departure Communication (Admissions) Diagnostic findings discussed with the patient. Patient refuses pain medication. Plan for discharge to home. Patient follow-up with her PCP for recheck this week. She'll call for appointment time. Patient to return immediately to the emergency department for worsened symptoms or any other concerns. Impression Primary Impression: Swelling of left lower extremity Disposition: HOME, SELF-CARE Condition: Improved Departure-Patient Inst. Decision time for Depature: 13:13 Referrals: [facility] (PCP/Family) Primary Care Physician Patient Instructions: Deep Vein Thrombosis (Blood Clots in the Legs) (DC) Add. Discharge Instructions: All discharge instructions reviewed with patient and/or family. Voiced understanding. Elevate the left lower extremity. Tylenol extra strength over- the-counter as directed for pain. Ibuprofen 800 mg by mouth every 8 hours as needed for pain. Wear compression socks throughout the day. Avoid sitting or riding in a car for greater than 2 hours without ambulating. Follow-up with your primary care provider as an outpatient for recheck this week. Return to the emergency department for worsened symptoms or any other concerns. OMID MOFFETT October 08, 2017 11:32
--- NOTE | 2017-10-08 13:05 | Diagnostic Imaging Report ---
PROCEDURE: US left lower extremity venous. TECHNIQUE: Multiple real-time grayscale images were obtained over the left lower extremity in various projections. Additional duplex Doppler and color Doppler images were also obtained. INDICATION: Left lower extremity swelling. COMPARISON: None. FINDINGS: The left common femoral vein, femoral vein, deep femoral vein, and popliteal vein are normal in appearance. These vessels show normal compressibility, color flow and doppler augmentation. The visualized deep calf veins demonstrate no distinct intraluminal thrombus. IMPRESSION: 1. No sonographic evidence of deep venous thrombosis in the left lower extremity. Dictated by: Dictated on workstation # [id number]
[2017-10-08 13:19] VITALS: BP 116/84
== END 2017-10-08 13:19 | disposition home or self-care (01) ==
LOC: EDUNIT# 09:39 → ER 09:43
DX: M79.89 Other specified soft tissue disorders (principal); I10 Essential (primary) hypertension; E03.9 Hypothyroidism, unspecified; G43.909 Migraine, unspecified, not intractable, without status migrainosus; Z87.448 Personal history of other diseases of urinary system; Z88.5 Allergy status to narcotic agent; Z88.8 Allergy status to other drugs, medicaments and biological substances

== ENCOUNTER → 2018-02-26 | Outpatient (CLI) | payer OTHER ==
[~2018-02-26] MED LIST changes: -BENA10TA2 PO; +BENA10TA7 PO; +LISINOPRIL; -OXYC-197 PO; +OXYC1TAB87 PO
--- NOTE | 2018-02-26 12:12 | Diagnostic Imaging Report ---
Pelvic ultrasound. INDICATION: Pelvic pain. FINDINGS: The uterus is nongravid and measures 9.4 x 5.5 x 4.4 cm. The uterus does measure somewhat larger than noted on the prior exam of 02/24/2013 at which time it measured 7.3 x 4.0 x 3.9 cm. There is no focal mass involving the uterus to suggest a fibroid. The endometrial lining is thickened measuring 10 mm (normal 5 mm or less). This finding is nonspecific, however. Correlation with the patient's menstrual cycle would be recommended. The previous exam did note a 2.8 cm cyst associated with the left ovary. On this exam, the left ovary was not well visualized but there do appear to be a few contiguous cysts in the left adnexa. These have a conglomerate size of 3.8 x 3.6 x 3.0 cm. I suspect that these are related to the left ovary. The cysts do contain a broad septation and perhaps a small nodule within one of the cysts. The right ovary is unremarkable. There is no solid pelvic mass or free fluid collection noted otherwise. IMPRESSION: 1. There is a group of complex cysts in the left adnexa. These are most likely arising from the left ovary. A short-term (4-6 week) followup pelvic ultrasound exam would be recommended. 2. There is no acute pelvic abnormality noted otherwise. Dictated by: Dictated on workstation # [id number]
== END ==
LOC: RAD 10:07
PROVIDERS: ATTEND Nurse Practitioner Primary Care
DX: N83.8 Other noninflammatory disorders of ovary, fallopian tube and broad ligament (principal); N80.9 Endometriosis, unspecified
CPT/HCPCS: 76830; 76856

== ENCOUNTER 2018-05-27 08:51 | Outpatient (CLI) | payer OTHER ==
[~2018-05-27] VITALS: Ht 167.6 cm; Wt 122.1 kg
[2018-05-27] MEDS ORDERED: NF-ESOM40C PO (09:00)
[2018-05-27] MEDS ORDERED: LISI-552 PO (09:00)
[2018-05-27 09:03] VITALS: BP 133/84
[2018-05-27 09:40] LABS: BASOPHILS % (AUTO) 0 % (0-10); EOSINOPHILS # (AUTO) 0.1 10^3/uL (0.0-0.3); EOSINOPHILS % (AUTO) 2 % (0-10); HEMATOCRIT 37 % (35-52); HEMOGLOBIN 11.7 G/DL (11.5-16.0); LYMPHOCYTES # (AUTO) 2.6 X 10^3 (1.0-4.0); LYMPHOCYTES % (AUTO) 35 % (12-44); MEAN CORPUSCULAR HEMOGLOBIN 27 PG (25-34); MEAN CORPUSCULAR HGB CONC 32 G/DL (32-36); MEAN CORPUSCULAR VOLUME 86 FL (80-99); MEAN PLATELET VOLUME 9.6 FL (7.4-10.4); MONOCYTES # (AUTO) 0.7 X 10^3 (0.0-1.0); MONOCYTES % (AUTO) 9 % (0-12); NEUTROPHILS % (AUTO) 54 % (42-75); PLATELET COUNT 315 10^3/uL (130-400); RED BLOOD COUNT 4.31 10^6/uL (4.35-5.85); RED CELL DISTRIBUTION WIDTH 14.5 % (10.0-14.5); WHITE BLOOD COUNT 7.5 10^3/uL (4.3-11.0)
== END 2018-05-27 12:03 | disposition home or self-care (01) ==
LOC: PREOP 08:51
PROVIDERS: ATTEND Obstetrics & Gynecology
DX: Z01.812 Encounter for preprocedural laboratory examination (principal); Z11.2 Encounter for screening for other bacterial diseases; R10.2 Pelvic and perineal pain; N80.9 Endometriosis, unspecified
CPT/HCPCS: 36415; 85025; 86850; 86900; 86901; 87081